=== PATIENT | female | born 1990 | race Two or more races ===

== ENCOUNTER 2019-05-30 23:30 | Emergency (ER) | payer OTHER ==
[2019-05-30 23:35] VITALS: BP 105/52; PULSE 65; TEMP 98.3; BMI 24.9
--- NOTE | 2019-05-30 23:41 | PDOC ---
*Physical Exam - Vital Signs Last Vital Signs Temp Pulse Resp BP Pulse Ox 98.3 F 65 17 105/52 L 100 05/30/19 23:33 05/30/19 23:33 05/30/19 23:33 05/30/19 23:33 05/30/19 23:33 Medical Decision Making - Medical Decision Making 05/30/19 23:40 Patient seen by the advanced practice provider under my direct supervision. Ancillary testing reviewed as necessary. I agree with plan as outlined by the advanced practice provider. *DC/Admit/Observation/Transfer Diagnosis at time of Disposition: Yeast infection Back pain Qualifiers: Back pain location: low back pain Chronicity: acute Back pain laterality: bilateral Sciatica presence: without sciatica Qualified Code(s): M54.5 - Low back pain - Discharge Dispostion Disposition: HOME Condition at time of disposition: Stable - Prescriptions Prescriptions: Cyclobenzaprine HCl 7.5 mg PO HS #10 tablet Naproxen [Naprosyn] 500 mg PO BID #20 tablet - Referrals - Patient Instructions Printed Discharge Instructions: DI for Low Back Pain, DI for Vaginal Yeast Infection - Post Discharge Activity
--- NOTE | 2019-05-31 00:03 | PDOC ---
History of Present Illness - General Chief Complaint: Back Pain Stated Complaint: BACK PAIN Time Seen by Provider: 05/30/19 23:39 - History of Present Illness Initial Comments: 05/31/19 00:03 CHIEF COMPLAINT: back pain, urinary discomfort HISTORY OF PRESENT ILLNESS: 28 yo F with no significant PMH presents to ED with back pain and burning with urination. Patient reports she thought she had an infection three days ago and used a single dose of Monistat. She reports now low back pain with burning with urination. Patient is fully ambulatory, denies any loss of bladder or bowel function. No recent travel or sick contacts. PAST MEDICAL HISTORY: Denies past medical history FAMILY HISTORY: Denies SOCIAL HISTORY: Denies tobacco, alcohol, illicit drug use. SURGICAL HISTORY: Denies ALLERGIES: No known drug allergies REVIEW OF SYSTEMS General/Constitutional: Denies fever or chills. Denies weakness, weight change. HEENT: Denies change in vision. Denies ear pain or discharge. Denies sore throat. Cardiovascular: Denies chest pain or shortness of breath. Respiratory: Denies cough, wheezing, or hemoptysis. Gastrointestinal: Denies nausea, vomiting, diarrhea or constipation. Denies rectal bleeding. Genitourinary: Dysuria . Musculoskeletal: Low back pain b/l. Skin and breasts: Denies rash or easy bruising. Neurologic: Denies headache, vertigo, loss of consciousness, or loss of sensation. PHYSICAL EXAM General Appearance: Well-appearing, appropriately dressed. No apparent distress , no intoxication. HEENT: EOMI, PERRLA, normal ENT inspection, normal voice, TMs normal, pharynx normal. No conjunctival pallor. No photophobia, scleral icterus. Neck: Supple. Trachea midline. No tenderness, rigidity, carotid bruit, stridor , lymphadenopathy, or thyromegaly. Respiratory/Chest: Lungs CTAB. No shortness of breath, chest tenderness, respiratory distress, accessory muscle use. No crackles, rales, rhonchi, stridor , wheezing, dullness Cardiovascular: RRR. S1, S2. No JVD, murmur, bradycardia, tachycardia. Vascular Pulses: Dorsalis-Pedis (R): 2+, Dorsalis-Pedis (L): 2+ Gastrointestinal/Abdominal: Normal bowel sounds. Abdomen soft, non-distended. No tenderness or rebound tenderness. No organomegaly, pulsatile mass, guarding , hernia, hepatomegaly, splenomegaly. Lymphatic: No adenopathy, tenderness. Musculoskeletal/Extremities: Normal inspection. No saddle anesthesia or decreased sensation to lower extremities. FROM of all extremities, normal capillary refill. Pelvis Stable. No CVA tenderness. No tenderness to extremities, pedal edema, swelling, erythema or deformity. Integumentary: Appropriate color, dry, warm. No cyanosis, erythema, jaundice or rash Neurologic: men's furnishings salesperson II-XII intact. Fully oriented, alert. Appropriate mood/affect. Motor strength 5/5. No appreciable EOM palsy, facial droop or sensory deficit. 05/31/19 01:09 Past History - Past Medical History Allergies/Adverse Reactions: Allergies Allergy/AdvReac Type Severity Reaction Status Date / Time No Known Allergies Allergy Verified 05/30/19 23:35 Home Medications: Ambulatory Orders Cyclobenzaprine HCl 10 mg PO Q8H PRN #14 tablet 05/07/18 Naproxen [Naprosyn -] 500 mg PO TID #30 tablet 05/07/18 Cyclobenzaprine HCl 7.5 mg PO HS #10 tablet 05/31/19 Naproxen [Naprosyn] 500 mg PO BID #20 tablet 05/31/19 COPD: No Other medical history: herniated disc - Reproductive History (#): 4 Para: 2 Spontaneous : 1 - Immunization History Immunization Up to Date: Yes - Suicide/Smoking/Psychosocial Hx Smoking History: Never smoked Have you smoked in the past 12 months: No Information on smoking cessation initiated: No Hx Alcohol Use: No Drug/Substance Use Hx: No Substance Use Type: None *Physical Exam - Vital Signs Last Vital Signs Temp Pulse Resp BP Pulse Ox 98.3 F 65 17 105/52 L 100 05/30/19 23:33 05/30/19 23:33 05/30/19 23:33 05/30/19 23:33 05/30/19 23:33 Medical Decision Making - Medical Decision Making 05/31/19 00:32 28 yo F with no significant PMH presents to ED with back pain and burning with urination. -UA, UCx 05/31/19 01:09 labs unremarkable exam unremarkable diflucan, toradol *DC/Admit/Observation/Transfer Diagnosis at time of Disposition: Yeast infection Back pain Qualifiers: Back pain location: low back pain Chronicity: acute Back pain laterality: bilateral Sciatica presence: without sciatica Qualified Code(s): M54.5 - Low back pain - Discharge Dispostion Disposition: HOME Condition at time of disposition: Stable Decision to Admit order: No - Prescriptions Prescriptions: Cyclobenzaprine HCl 7.5 mg PO HS #10 tablet Naproxen [Naprosyn] 500 mg PO BID #20 tablet - Referrals - Patient Instructions Printed Discharge Instructions: DI for Vaginal Yeast Infection, DI for Low Back Pain - Post Discharge Activity
[2019-05-31 00:58] LABS: URINE APPEARANCE CLEAR; URINE BILIRUBIN NEGATIVE (NEGATIVE); URINE COLOR YELLOW; URINE GLUCOSE (UA) NEGATIVE (NEGATIVE); URINE KETONE NEGATIVE (NEGATIVE); URINE LEUK ESTERASE NEGATIVE (NEGATIVE); URINE NITRITE NEGATIVE (NEGATIVE); URINE PROTEIN NEGATIVE (NEGATIVE); URINE UROBILINOGEN 0.2 mg/dL (0.2-1.0)
[2019-05-31] MEDS ORDERED: KETOROLAC TROMETHAMINE 30 MG/1 ML VIAL IM ONE (01:07)
[2019-05-31] MEDS ORDERED: FLUCONAZOLE 50 MG TABLET PO ONE (01:08)
[2019-05-31] MEDS ORDERED: FLUCONAZOLE 100 MG TABLET (UD) ONE (01:21)
[2019-05-31] MEDS ORDERED: KETOROLAC TROMETHAMINE 30 MG/1 ML VIAL ONE (01:21)
[2019-05-31] MEDS ORDERED: FLUCONAZOLE 150 MG TABLET PO ONE (01:29)
== END 2019-05-31 01:37 | disposition home or self-care (01) ==
LOC: JER 23:30
PROC: 3E0233Z Introduction of Anti-inflammatory into Muscle, Percutaneous Approach (ICD-10-PCS; principal; 2019-05-30)
DX: M54.5 Low back pain (principal); B37.9 Candidiasis, unspecified
CPT/HCPCS: 81003; 84703; 87086; 99283-25